=== PATIENT | male | born 1960 | race African-American/Black ===

== ENCOUNTER 2017-03-29 15:16 | Observation (INO) ==
[2017-03-29 17:03] LABS: Basophils % 0.6 % (0.0-0.8); Hematocrit 44.7 VOL% (42.0-52.0); Hemoglobin 14.4 GM/DL (14.0-18.0); Immature Granulocytes % 0.4 %; Immature Granulocytes Absolute 0.02 #; Lymphocytes # 0.9 10*3/uL (1.4-4.0); Lymphocytes % 17.6 % (21.2-54.2); Mean Corpuscular HGB Conc 32.2 GM/DL (32-36); Mean Corpuscular Hemoglobin 29 PG (27-34); Mean Corpuscular Volume 90.1 FL (87-102); Mean Platelet Volume 10.4 FL (9.6-12.0); Monocytes # 0.6 10*3/uL (0.11-0.8); Neutrophils # 3.4 10*3/uL (1.4-7.4); Neutrophils % 69.4 % (38.7-73.9); Platelet Count 148 T/CUMM (130-400); Red Blood Count 4.96 MC/CUMM (3.8-5.5); Red Cell Distribution Width 13.3 % (9.3-17.3); White Blood Count 4.8 T/CUMM (4-12)
[2017-03-29 17:10] LABS: INR 1.1; PT Patient Result 11.1 SECS
[2017-03-29 17:35] LABS: Albumin 3.8 G/DL (3.4-5.0); Bilirubin,Total 0.4 MG/DL (0.2-1.0); Calcium 9.1 MG/DL (8.5-10.1); Magnesium 1.9 MG/DL (1.8-2.4); Osmolality,Calculated 262.4 MOS/KG (273-304); Potassium 4.3 MMOL/L (3.5-5.1); Total Protein 7.4 G/DL (6.4-8.3)
[2017-03-29] MEDS ORDERED: ALUM/MAG/SIMETH/LIDO VISC 1:1 30 ML BOTTLE PO ONE (18:22)
[2017-03-29] MEDS ORDERED: cloNIDine 0.1 MG TABLET ONE (18:29)
[2017-03-29] MEDS: ALUM/MAG/SIMETH/LIDO VISC 1:1 30 ML BOTTLE PO STA ×2 (18:31→18:33)
[2017-03-29] MEDS ORDERED: ONDANSETRON 4 MG/2 ML VIAL IV PRN (21:27)
[2017-03-29] MEDS ORDERED: NITROGLYCERIN SL 0.4 MG TABLET SL PRN (21:27)
[2017-03-29] MEDS ORDERED: MECLIZINE 25 MG TABLET PO PRN (21:27)
[2017-03-29 21:59] LABS: Barbiturates Screen,Urine Negative (Negative); Benzodiazepines Screen,Urine Negative (Negative); Cannabinoid Screen,Urine Positive (Negative); Opiate Screen,Urine Negative (Negative); Phencyclidine Screen,Urine Negative (Negative)
[2017-03-29] MEDS: PANTOPRAZOLE 40 MG TABLET PO SCH (22:03)
[2017-03-29] MEDS: ARIPiprazole 10 MG TABLET PO SCH (22:03)
[2017-03-30 00:59] LABS: Troponin I Only < 0.015 NG/ML (0.00-0.045)
[2017-03-30] MEDS: ACETAMINOPHEN 325 MG TABLET PO PRN ×2 (01:10→09:01)
[2017-03-30 04:41] LABS: Basophils % 0.5 % (0.0-0.8); Hematocrit 40.3 VOL% (42.0-52.0); Hemoglobin 13.6 GM/DL (14.0-18.0); Lymphocytes # 0.8 10*3/uL (1.4-4.0); Lymphocytes % 20.5 % (21.2-54.2); Mean Corpuscular HGB Conc 33.7 GM/DL (32-36); Mean Corpuscular Hemoglobin 29 PG (27-34); Mean Corpuscular Volume 86.9 FL (87-102); Monocytes # 0.5 10*3/uL (0.11-0.8); Monocytes % 12.2 % (1.7-12.7); Neutrophils # 2.5 10*3/uL (1.4-7.4); Neutrophils % 66.8 % (38.7-73.9); Platelet Count 145 T/CUMM (130-400); Red Blood Count 4.64 MC/CUMM (3.8-5.5); Red Cell Distribution Width 13.2 % (9.3-17.3); White Blood Count 3.8 T/CUMM (4-12)
[2017-03-30 05:08] LABS: Calcium 8.4 MG/DL (8.5-10.1); Osmolality,Calculated 264.4 MOS/KG (273-304); Potassium 4.1 MMOL/L (3.5-5.1)
[2017-03-30 05:35] LABS: Troponin I Only < 0.015 NG/ML (0.00-0.045)
[2017-03-30] MEDS: CITALOPRAM 20 MG TABLET PO SCH (09:01)
[2017-03-30] MEDS: METOPROLOL SUCCINATE XL 50 MG TABLET PO SCH (09:01)
[2017-03-30] MEDS: amLODIPine 5 MG TABLET PO SCH (09:01)
[2017-03-30] MEDS: hydrALAZINE 25 MG TABLET PO SCH (09:03)
[2017-03-30] MEDS: PANTOPRAZOLE 40 MG TABLET PO SCH ×2 (09:03→20:29)
[2017-03-30] MEDS: LORATADINE 10 MG TABLET PO SCH (09:03)
[2017-03-30] MEDS: ARIPiprazole 10 MG TABLET PO SCH (20:29)
[2017-03-31 05:38] LABS: Basophils % 0.7 % (0.0-0.8); Hematocrit 40.4 VOL% (42.0-52.0); Hemoglobin 13.5 GM/DL (14.0-18.0); Immature Granulocytes % 0.2 %; Immature Granulocytes Absolute 0.01 #; Lymphocytes # 1.2 10*3/uL (1.4-4.0); Lymphocytes % 27.8 % (21.2-54.2); Mean Corpuscular HGB Conc 33.4 GM/DL (32-36); Mean Corpuscular Hemoglobin 29 PG (27-34); Mean Corpuscular Volume 86.9 FL (87-102); Monocytes # 0.5 10*3/uL (0.11-0.8); Monocytes % 11.8 % (1.7-12.7); Neutrophils # 2.5 10*3/uL (1.4-7.4); Neutrophils % 59.5 % (38.7-73.9); Platelet Count 128 T/CUMM (130-400); Red Blood Count 4.65 MC/CUMM (3.8-5.5); Red Cell Distribution Width 13.2 % (9.3-17.3); White Blood Count 4.1 T/CUMM (4-12)
[2017-03-31 06:07] LABS: Magnesium 1.7 MG/DL (1.8-2.4); Osmolality,Calculated 261.7 MOS/KG (273-304)
[2017-03-31 08:27] VITALS: BP 120/75
[2017-03-31] MEDS: LORATADINE 10 MG TABLET PO SCH (08:40)
[2017-03-31] MEDS: CITALOPRAM 20 MG TABLET PO SCH (08:40)
[2017-03-31] MEDS: PANTOPRAZOLE 40 MG TABLET PO SCH (08:40)
[2017-03-31] MEDS: amLODIPine 5 MG TABLET PO SCH (08:42)
[2017-03-31] MEDS: hydrALAZINE 25 MG TABLET PO SCH (08:43)
[2017-03-31] MEDS: METOPROLOL SUCCINATE XL 50 MG TABLET PO SCH (08:46)
== END 2017-03-31 11:30 | disposition home or self-care (01) ==
LOC: N.EDINP 15:16 → N.ED 15:16 → N.TELEN 19:05
PROVIDERS: ADMIT Internal Medicine; ATTEND Internal Medicine

== ENCOUNTER 2018-12-04 16:08 | Observation (INO) ==
[2018-12-04] MEDS ORDERED: ALBUTEROL/IPRATROPIUM 3 ML NEB RESP TX STA (16:44)
[2018-12-04] MEDS ORDERED: ASPIRIN 325 MG TABLET PO STA (16:44)
[2018-12-04] MEDS ORDERED: ALUM/MAG/SIMETH/LIDO VISC 1:1 30 ML BOTTLE PO STA (16:44)
[2018-12-04] MEDS ORDERED: MORPHINE 4 MG/1 ML VIAL IV STA (16:44)
[2018-12-04] MEDS ORDERED: NITROGLYCERIN 2% OINT 1 INCH/GM PACK TOP STA (16:44)
[2018-12-04] MEDS ORDERED: methylPREDNISolone SOD SUC 125 MG/2 ML VIAL IV STA (16:44)
[2018-12-04] MEDS ORDERED: ONDANSETRON 4 MG/2 ML VIAL IV STA (16:44)
[2018-12-04 17:27] LABS: Basophils % 0.3 % (0.0-0.8); Eosinophils % 0.3 % (0.00-10.9); Hematocrit 41.9 VOL% (42.0-52.0); Hemoglobin 13.8 GM/DL (14.0-18.0); Immature Granulocytes % 0.3 %; Immature Granulocytes Absolute 0.02 #; Lymphocytes # 1.4 10*3/uL (1.4-4.0); Lymphocytes % 20.8 % (21.2-54.2); Mean Corpuscular HGB Conc 32.9 GM/DL (32-36); Mean Corpuscular Volume 88.2 FL (87-102); Mean Platelet Volume 9.9 FL (9.6-12.0); Monocytes % 6.7 % (1.7-12.7); Neutrophils % 71.6 % (38.7-73.9); Platelet Count 179 T/CUMM (130-400); Red Blood Count 4.75 MC/CUMM (3.8-5.5); Red Cell Distribution Width 13.3 % (9.3-17.3); White Blood Count 6.9 T/CUMM (4-12)
[2018-12-04 17:37] LABS: INR 1.1; PT Patient Result 11.9 SECS (9.6-12.2)
[2018-12-04 18:07] LABS: Apearance,Urine CLEAR (Clear); Bilirubin,Urine Negative (Negative); Blood, Urine Small mg/dL (Negative); Glucose,Urine (UA) Negative (Negative); Ketones,Urine 5 mg/dL (Negative); Mucus,Urine Occasional /LPF (Occasional); Nitrite,Urine Negative (Negative); Protein,Urine Negative; RBC,Urine 3 /HPF (0-4); Squamous Epithelial Cell,Urine Occasional /HPF (0-10); Urine Color Yellow (Yellow); Urine Specific Gravity 1.012 (1.001-1.035); Urine Urobilinogen < 2.0 EU/DL (0.2-1.0); WBC,Urine 1 /HPF (0-6)
[2018-12-04 18:07] LABS: Albumin 3.5 G/DL (3.4-5.0); Bilirubin,Total 0.5 MG/DL (0.2-1.0); Osmolality,Calculated 263.4 MOS/KG (273-304)
[2018-12-04] MEDS ORDERED: MAGNESIUM SULF RIDER 2 GM in PREMIX 1 EACH IV STA (18:09)
[2018-12-04] MEDS ORDERED: hydrALAZINE 20 MG/1 ML VIAL IV STA ×2 (18:18→19:38)
[2018-12-04 18:31] LABS: Barbiturates Screen,Urine Negative (Negative); Benzodiazepines Screen,Urine Negative (Negative); Cannabinoid Screen,Urine Positive (Negative); Opiate Screen,Urine Negative (Negative); Phencyclidine Screen,Urine Negative (Negative)
[2018-12-04] MEDS ORDERED: ACETAMINOPHEN 325 MG TABLET PO PRN (19:18)
[2018-12-04] MEDS ORDERED: traZODone 50 MG TABLET PO PRN (19:18)
[2018-12-04] MEDS ORDERED: ONDANSETRON 4 MG/2 ML VIAL IV PRN (19:18)
[2018-12-04] MEDS ORDERED: DOCUSATE SODIUM 100 MG CAPSULE PO PRN (19:18)
[2018-12-04] MEDS ORDERED: LABETALOL 20 MG/4 ML SYRINGE IV PRN (19:24)
[2018-12-04] MEDS ORDERED: ALBUTEROL/IPRATROPIUM 3 ML NEB RESP TX SCH (19:30)
[2018-12-04 20:21] LABS: Troponin I < 0.015 NG/ML (0.00-0.045)
[2018-12-04] MEDS ORDERED: ENOXAPARIN 40 MG/0.4 ML SYRINGE SUBCUT SCH (21:00)
[2018-12-04] MEDS: CARVEDILOL 12.5 MG TABLET PO SCH (22:47)
[2018-12-05] MEDS: ALBUTEROL/IPRATROPIUM 3 ML NEB RESP TX SCH ×4 (00:01→23:46)
[2018-12-05 01:35] LABS: Basophils % 0.2 % (0.0-0.8); Hematocrit 40.2 VOL% (42.0-52.0); Hemoglobin 12.9 GM/DL (14.0-18.0); Immature Granulocytes % 0.5 %; Immature Granulocytes Absolute 0.03 #; Lymphocytes # 0.7 10*3/uL (1.4-4.0); Lymphocytes % 10.4 % (21.2-54.2); Mean Corpuscular HGB Conc 32.1 GM/DL (32-36); Mean Corpuscular Volume 88.4 FL (87-102); Mean Platelet Volume 9.7 FL (9.6-12.0); Monocytes % 0.8 % (1.7-12.7); Neutrophils % 88.1 % (38.7-73.9); Platelet Count 168 T/CUMM (130-400); Red Blood Count 4.55 MC/CUMM (3.8-5.5); Red Cell Distribution Width 13.2 % (9.3-17.3); White Blood Count 6.2 T/CUMM (4-12)
[2018-12-05 01:54] LABS: Troponin I < 0.015 NG/ML (0.00-0.045)
[2018-12-05 01:57] LABS: Band Neutrophils 1 % (0-10); Lymphocytes 8 % (20-55); Nucleated Red Blood Cells 0 (0-5); Platelet Estimate Normal; Segmented Neutrophils 88 % (50-85); Total Cells Counted 100
[2018-12-05 02:06] LABS: C-Reactive Protein HS Cardiac 1.3 MG/DL (0-0.3); Risk Ratio 2.68
[2018-12-05 02:18] LABS: Calcium 8.6 MG/DL (8.5-10.1); Osmolality,Calculated 269.2 MOS/KG (273-304); Thyroid Stimulating Hormone 0.483 uIU/ml (0.358-3.74)
[2018-12-05] MEDS: MAGNESIUM CHLORIDE 64 MG TABLET PO SCH (08:41)
[2018-12-05] MEDS: buPROPion SR 100 MG TABLET PO SCH (08:41)
[2018-12-05] MEDS: CARVEDILOL 12.5 MG TABLET PO SCH ×2 (08:41→16:47)
[2018-12-05] MEDS: ASPIRIN EC 325 MG TABLET PO SCH (08:41)
[2018-12-05] MEDS: CETIRIZINE 10 MG TABLET PO SCH (08:41)
[2018-12-05] MEDS: PANTOPRAZOLE 40 MG TABLET PO SCH ×2 (08:41→23:39)
[2018-12-05] MEDS: NICOTINE 21 MG/24 HR PATCH TRANSDERM SCH (08:41)
[2018-12-05] MEDS ORDERED: amLODIPine 5 MG TABLET PO SCH (09:00)
[2018-12-05] MEDS ORDERED: PANTOPRAZOLE 40 MG TABLET PO SCH (09:00)
[2018-12-05] MEDS: FLUTICASONE 50 MCG NASAL SPRAY 16 GM BOTTLE BOTH NARES SCH (09:52)
[2018-12-05] MEDS: amLODIPine 10 MG TABLET PO SCH (14:50)
[2018-12-06] MEDS: ALBUTEROL/IPRATROPIUM 3 ML NEB RESP TX SCH (07:42)
[2018-12-06] MEDS ORDERED: LACTATED RINGERS 1,000 ML IV SCH (08:00)
[2018-12-06] MEDS ORDERED: LOSARTAN 25 MG TABLET PO SCH (09:00)
[2018-12-06] MEDS ORDERED: LIDOCAINE 100 MG/5 ML SYRINGE ONE (10:00)
[2018-12-06] MEDS ORDERED: PROPOFOL 200 MG/20 ML VIAL IV ONE (10:00)
[2018-12-06 11:59] VITALS: BP 168/109
[2018-12-06] MEDS: buPROPion SR 100 MG TABLET PO SCH (12:40)
[2018-12-06] MEDS: PANTOPRAZOLE 40 MG TABLET PO SCH (12:40)
[2018-12-06] MEDS: ASPIRIN EC 325 MG TABLET PO SCH (12:40)
[2018-12-06] MEDS: NICOTINE 21 MG/24 HR PATCH TRANSDERM SCH (12:40)
[2018-12-06] MEDS: MAGNESIUM CHLORIDE 64 MG TABLET PO SCH (12:40)
[2018-12-06] MEDS: amLODIPine 10 MG TABLET PO SCH (12:40)
[2018-12-06] MEDS: CETIRIZINE 10 MG TABLET PO SCH (12:40)
[2018-12-06] MEDS: FLUTICASONE 50 MCG NASAL SPRAY 16 GM BOTTLE BOTH NARES SCH (12:41)
[2018-12-06] MEDS: CARVEDILOL 12.5 MG TABLET PO SCH (12:41)
== END 2018-12-06 12:03 | disposition home or self-care (01) ==
LOC: N.EDINP 16:08 → N.ED 16:08 → N.TELES 20:14
PROVIDERS: ADMIT Hospitalist; ATTEND Hospitalist

== ENCOUNTER 2019-02-09 01:39 | Observation (INO) ==
[2019-02-09] MEDS ORDERED: hydrALAZINE 20 MG/1 ML VIAL ONE (02:13)
[2019-02-09] MEDS ORDERED: hydrALAZINE 20 MG/1 ML VIAL IV STA (02:16)
[2019-02-09 02:29] LABS: Basophils % 0.7 % (0.0-0.8); Eosinophils # 0.1 10*3/uL (0.0-0.87); Hemoglobin 13.3 GM/DL (14.0-18.0); Immature Granulocytes % 0.2 %; Immature Granulocytes Absolute 0.01 #; Lymphocytes # 2.2 10*3/uL (1.4-4.0); Lymphocytes % 36.1 % (21.2-54.2); Mean Corpuscular HGB Conc 34.1 GM/DL (32-36); Mean Corpuscular Volume 86.1 FL (87-102); Mean Platelet Volume 9.8 FL (9.6-12.0); Platelet Count 180 T/CUMM (130-400); Red Blood Count 4.53 MC/CUMM (3.8-5.5); Red Cell Distribution Width 12.1 % (9.3-17.3)
[2019-02-09 02:31] LABS: INR 1.1; PT Patient Result 11.8 SECS (9.6-12.2)
[2019-02-09 02:39] LABS: Amorphous Crystals,Urine Occasional /HPF (Few); Apearance,Urine CLOUDY (Clear); Bilirubin,Urine Negative (Negative); Blood, Urine Negative (Negative); Glucose,Urine (UA) Negative (Negative); Ketones,Urine 5 mg/dL (Negative); Nitrite,Urine Negative (Negative); Protein,Urine Negative; RBC,Urine 2 /HPF (0-4); Urine Color Yellow (Yellow); Urine Urobilinogen < 2.0 EU/DL (0.2-1.0)
[2019-02-09 02:46] LABS: Albumin 3.6 G/DL (3.4-5.0); Bilirubin,Total 0.7 MG/DL (0.2-1.0); Calcium 8.8 MG/DL (8.5-10.1); Osmolality,Calculated 244.9 MOS/KG (273-304); Total Protein 7.2 G/DL (6.4-8.3)
[2019-02-09 02:50] LABS: Barbiturates Screen,Urine Negative (Negative); Benzodiazepines Screen,Urine Negative (Negative); Cannabinoid Screen,Urine Positive (Negative); Opiate Screen,Urine Negative (Negative); Phencyclidine Screen,Urine Negative (Negative)
[2019-02-09] MEDS ORDERED: LABETALOL 20 MG/4 ML SYRINGE IV STA (03:07)
[2019-02-09] MEDS ORDERED: LABETALOL 20 MG/4 ML SYRINGE IV ONE (03:08)
[2019-02-09] MEDS ORDERED: guaiFENesin/DM ER 600-30 MG TABLET PO PRN (03:41)
[2019-02-09] MEDS ORDERED: BISACODYL 5 MG TABLET PO PRN (03:41)
[2019-02-09] MEDS ORDERED: ONDANSETRON 4 MG/2 ML VIAL IV PRN (03:41)
[2019-02-09] MEDS ORDERED: diphenhydrAMINE CAP 25 MG CAPSULE PO PRN (03:41)
[2019-02-09] MEDS ORDERED: traZODone 50 MG TABLET PO PRN (03:41)
[2019-02-09] MEDS ORDERED: ACETAMINOPHEN 325 MG TABLET PO PRN (03:41)
[2019-02-09] MEDS ORDERED: MORPHINE 4 MG/1 ML VIAL IV PRN (03:41)
[2019-02-09] MEDS ORDERED: NICOTINE 21 MG/24 HR PATCH TRANSDERM PRN (03:41)
[2019-02-09] MEDS ORDERED: hydrALAZINE 20 MG/1 ML VIAL IV PRN (03:41)
[2019-02-09 04:46] LABS: Risk Ratio 2.56; Thyroid Stimulating Hormone 0.81 uIU/ml (0.358-3.74); VLDL CHOLESTEROL 8.4 MG/DL
[2019-02-09] MEDS ORDERED: PNEUMOCOCCAL VACCINE (23 VALENT) 0.5 ML VIAL IM ONE (06:08)
[2019-02-09] MEDS: carvediloL 12.5 MG TABLET PO SCH ×2 (09:49→20:42)
[2019-02-09] MEDS: ENOXAPARIN 40 MG/0.4 ML SYRINGE SUBCUT SCH (09:49)
[2019-02-09] MEDS: cloNIDine 0.1 MG TABLET PO SCH ×3 (09:49→20:42)
[2019-02-09] MEDS: PANTOPRAZOLE 40 MG TABLET PO SCH (09:50)
[2019-02-09] MEDS: amLODIPine 10 MG TABLET PO SCH (09:50)
[2019-02-09] MEDS ORDERED: MAGNESIUM SULF RIDER 4 GM in PREMIX 1 EACH IV PRN (11:51)
[2019-02-09] MEDS ORDERED: MAGNESIUM SULF RIDER 2 GM in PREMIX 1 EACH IV PRN (11:51)
[2019-02-09 12:57] LABS: HIV Antigen/Antibody Result Nonreactive (Nonreactive)
[2019-02-10 07:48] VITALS: BP 144/92
[2019-02-10] MEDS: amLODIPine 10 MG TABLET PO SCH (08:23)
[2019-02-10] MEDS: cloNIDine 0.1 MG TABLET PO SCH (08:23)
[2019-02-10] MEDS: ENOXAPARIN 40 MG/0.4 ML SYRINGE SUBCUT SCH (08:23)
[2019-02-10] MEDS: PANTOPRAZOLE 40 MG TABLET PO SCH (08:23)
[2019-02-10] MEDS: carvediloL 12.5 MG TABLET PO SCH (08:23)
== END 2019-02-10 11:14 | disposition home or self-care (01) ==
LOC: N.EDINP 01:39 → N.ED 01:39 → SUATTDRO 03:41 → N.TELES 05:01
PROVIDERS: ADMIT Emergency Medicine; ATTEND Internal Medicine Cardiovascular Disease

== ENCOUNTER 2021-04-09 09:10 | Inpatient (IN) ==
[2021-04-09] MEDS ORDERED: ONDANSETRON 4 MG/2 ML VIAL IV STA (10:43)
[2021-04-09] MEDS ORDERED: SODIUM CHLORIDE 0.9% 1,000 ML IV STA (10:43)
[2021-04-09] MEDS ORDERED: hydrALAZINE 20 MG/1 ML VIAL IV STA ×2 (10:44→12:26)
[2021-04-09 11:27] LABS: Basophils % 0.3 % (0.0-0.8); Hemoglobin 15.9 GM/DL (14.0-18.0); Immature Granulocytes % 0.5 %; Immature Granulocytes Absolute 0.02 #; Lymphocytes # 0.8 10*3/uL (1.4-4.0); Lymphocytes % 20.7 % (21.2-54.2); Mean Corpuscular HGB Conc 33.8 GM/DL (32-36); Mean Corpuscular Volume 85.5 FL (87-102); Mean Platelet Volume 9.2 FL (9.6-12.0); Monocytes % 13.9 % (1.7-12.7); Neutrophils % 64.6 % (38.7-73.9); Platelet Count 163 T/CUMM (130-400); Red Cell Distribution Width 12.5 % (9.3-17.3); White Blood Count 3.8 T/CUMM (4-12)
[2021-04-09 11:32] LABS: Bilirubin,Urine Negative (Negative); Blood, Urine Negative (Negative); Glucose,Urine (UA) Negative (Negative); Ketones,Urine 20 mg/dL (Negative); Mucus,Urine Many /LPF (Occasional); Nitrite,Urine Negative (Negative); Protein,Urine >=500 MG/DL; RBC,Urine 17 /HPF (0-4); Urine Appearance CLEAR (Clear); Urine Color Amber (Yellow); Urine Specific Gravity 1.026 (1.001-1.035)
[2021-04-09 11:44] LABS: Albumin 3.4 G/DL (3.4-5.0); Bilirubin,Total 0.7 MG/DL (0.20-1.00); Osmolality,Calculated 235.6 MOS/KG (273-304); Potassium 3.9 MMOL/L (3.5-5.1)
[2021-04-09] MEDS ORDERED: DOCUSATE SODIUM 100 MG CAPSULE PO PRN (12:46)
[2021-04-09] MEDS ORDERED: ALUMINUM/MAGNES/SIMETH MAX STR 30 ML UDCUP PO PRN (12:46)
[2021-04-09] MEDS ORDERED: DEXTROSE 50% 25 GM/50 ML SYRINGE IV PRN ×2 (12:46→13:30)
[2021-04-09] MEDS ORDERED: GLUCAGON 1 MG VIAL IM PRN ×2 (12:46→13:30)
[2021-04-09] MEDS ORDERED: hydrALAZINE 20 MG/1 ML VIAL IV PRN (12:46)
[2021-04-09] MEDS ORDERED: NICOTINE 14 MG/24 HR PATCH TRANSDERM PRN (12:53)
[2021-04-09 13:22] LABS: Thyroid Stimulating Hormone 1.49 uIU/ml (0.358-3.74)
[2021-04-09] MEDS ORDERED: MAGNESIUM SULF RIDER 2 GM/50 ML PREMIX IV PRN (13:30)
[2021-04-09] MEDS ORDERED: MAGNESIUM SULF RIDER 4 GM/100 ML PREMIX IV PRN (13:30)
[2021-04-09] MEDS ORDERED: METHOCARBAMOL 750 MG TABLET PO PRN (13:31)
[2021-04-09] MEDS: SODIUM CHLORIDE 0.9% 1,000 ML IV SCH ×2 (13:59→23:40)
[2021-04-09] MEDS ORDERED: carvediloL 12.5 MG TABLET PO SCH (14:00)
[2021-04-09 15:13] LABS: Ferritin 815.7 ng/mL (26-388)
[2021-04-09] MEDS: ENOXAPARIN 40 MG/0.4 ML SYRINGE SUBCUT SCH (15:15)
[2021-04-09] MEDS: INSULIN LISPRO 100 UNIT/ML SUBCUT SCH ×2 (17:10→21:40)
[2021-04-09] MEDS: ACETAMINOPHEN 325 MG TABLET PO PRN (19:26)
[2021-04-09] MEDS: ONDANSETRON 4 MG/2 ML VIAL IV PRN (19:27)
[2021-04-09] MEDS: cloNIDine 0.1 MG TABLET PO SCH (21:43)
[2021-04-09] MEDS: carvediloL 12.5 MG TABLET PO SCH (21:43)
[2021-04-10 04:47] LABS: Basophils % 0.5 % (0.0-0.8); Hemoglobin 14.9 GM/DL (14.0-18.0); Immature Granulocytes % 0.2 %; Immature Granulocytes Absolute 0.01 #; Lymphocytes # 1.4 10*3/uL (1.4-4.0); Lymphocytes % 34.3 % (21.2-54.2); Mean Corpuscular HGB Conc 33.9 GM/DL (32-36); Mean Corpuscular Volume 84.5 FL (87-102); Mean Platelet Volume 10.1 FL (9.6-12.0); Monocytes % 14.9 % (1.7-12.7); Neutrophils % 50.1 % (38.7-73.9); Platelet Count 166 T/CUMM (130-400); Red Blood Count 5.21 MC/CUMM (3.8-5.5); Red Cell Distribution Width 12.4 % (9.3-17.3); White Blood Count 4.2 T/CUMM (4-12)
[2021-04-10 05:20] LABS: Albumin 2.9 G/DL (3.4-5.0); Calcium 8.3 MG/DL (8.5-10.1); Osmolality,Calculated 242.1 MOS/KG (273-304); Potassium 3.8 MMOL/L (3.5-5.1)
[2021-04-10 05:27] LABS: Anisocytosis Slight; Burr Cells Few; Platelet Estimate Normal
[2021-04-10] MEDS: INSULIN LISPRO 100 UNIT/ML SUBCUT SCH ×4 (09:23→22:26)
[2021-04-10] MEDS: carvediloL 12.5 MG TABLET PO SCH ×2 (09:35→22:21)
[2021-04-10] MEDS: PANTOPRAZOLE 40 MG TABLET PO SCH (09:36)
[2021-04-10] MEDS ORDERED: ASPIRIN CHEW 81 MG TABLET PO ONE (15:07)
[2021-04-10] MEDS: cloNIDine 0.1 MG TABLET PO SCH ×2 (15:16→22:21)
[2021-04-10] MEDS: ENOXAPARIN 40 MG/0.4 ML SYRINGE SUBCUT SCH (15:17)
[2021-04-10] MEDS: ASPIRIN 325 MG TABLET PO SCH (15:18)
[2021-04-10 15:41] LABS: Osmolality, Urine 888 mOsm/kg (150 - 1150)
[2021-04-10] MEDS: FAMOTIDINE 20 MG TABLET PO SCH (22:21)
[2021-04-10] MEDS: SODIUM CHLORIDE 0.9% 1,000 ML IV SCH (22:21)
[2021-04-11 00:31] LABS: Osmolality, Serum 241 mOsm/kg (275 - 295)
[2021-04-11] MEDS: ACETAMINOPHEN 325 MG TABLET PO PRN ×2 (03:57→20:00)
[2021-04-11 04:57] LABS: Basophils % 0.7 % (0.0-0.8); Eosinophils % 0.2 % (0.00-10.9); Hematocrit 40.7 VOL% (42.0-52.0); Hemoglobin 13.8 GM/DL (14.0-18.0); Immature Granulocytes % 0.2 %; Immature Granulocytes Absolute 0.01 #; Lymphocytes # 1.5 10*3/uL (1.4-4.0); Lymphocytes % 35.2 % (21.2-54.2); Mean Corpuscular HGB Conc 33.9 GM/DL (32-36); Mean Corpuscular Volume 84.6 FL (87-102); Mean Platelet Volume 9.6 FL (9.6-12.0); Monocytes % 16.1 % (1.7-12.7); Neutrophils % 47.6 % (38.7-73.9); Platelet Count 145 T/CUMM (130-400); Red Blood Count 4.81 MC/CUMM (3.8-5.5); Red Cell Distribution Width 12.3 % (9.3-17.3); White Blood Count 4.4 T/CUMM (4-12)
[2021-04-11 05:18] LABS: Calcium 8.2 MG/DL (8.5-10.1); Osmolality,Calculated 238.3 MOS/KG (273-304); Potassium 3.8 MMOL/L (3.5-5.1)
[2021-04-11] MEDS: SODIUM CHLORIDE 0.9% 1,000 ML IV SCH ×4 (05:28→22:12)
[2021-04-11 08:43] LABS: Atypical Lymphocytes Few; Hypochromia Slight; Lymphocytes 26 % (20-55); Platelet Estimate Adequate; Reactive Lymphocytes Few; Segmented Neutrophils 57 % (50-85); Total Cells Counted 100
[2021-04-11] MEDS: INSULIN LISPRO 100 UNIT/ML SUBCUT SCH ×4 (09:28→21:12)
[2021-04-11] MEDS: carvediloL 12.5 MG TABLET PO SCH ×2 (09:29→20:00)
[2021-04-11] MEDS: ASPIRIN 325 MG TABLET PO SCH (09:29)
[2021-04-11] MEDS: cloNIDine 0.1 MG TABLET PO SCH ×2 (09:29→20:00)
[2021-04-11] MEDS: FAMOTIDINE 20 MG TABLET PO SCH ×2 (09:30→20:00)
[2021-04-11] MEDS: ZINC SULFATE 220 MG CAPSULE PO SCH (09:30)
[2021-04-11] MEDS: PANTOPRAZOLE 40 MG TABLET PO SCH (09:30)
[2021-04-11] MEDS: ENOXAPARIN 40 MG/0.4 ML SYRINGE SUBCUT SCH (12:41)
[2021-04-11] MEDS: AZITHROMYCIN 250 MG TABLET PO SCH (14:34)
[2021-04-12 04:42] LABS: Basophils % 0.5 % (0.0-0.8); Hematocrit 39.6 VOL% (42.0-52.0); Hemoglobin 13.2 GM/DL (14.0-18.0); Immature Granulocytes % 0.5 %; Immature Granulocytes Absolute 0.02 #; Lymphocytes # 1.5 10*3/uL (1.4-4.0); Mean Corpuscular HGB Conc 33.3 GM/DL (32-36); Mean Corpuscular Volume 85.5 FL (87-102); Mean Platelet Volume 10.1 FL (9.6-12.0); Monocytes % 16.2 % (1.7-12.7); Neutrophils % 45.8 % (38.7-73.9); Platelet Count 141 T/CUMM (130-400); Red Blood Count 4.63 MC/CUMM (3.8-5.5); Red Cell Distribution Width 12.2 % (9.3-17.3); White Blood Count 4.1 T/CUMM (4-12)
[2021-04-12 04:57] LABS: Osmolality,Calculated 235.5 MOS/KG (273-304); Potassium 3.7 MMOL/L (3.5-5.1)
[2021-04-12 06:40] LABS: Lymphocytes 32 % (20-55); Segmented Neutrophils 56 % (50-85); Total Cells Counted 100
[2021-04-12 06:41] LABS: Atypical Lymphocytes Few; Burr Cells Few; Platelet Estimate Adequate
[2021-04-12] MEDS: INSULIN LISPRO 100 UNIT/ML SUBCUT SCH ×4 (07:51→20:26)
[2021-04-12] MEDS: SODIUM CHLORIDE 3% INJ 500 ML IV SCH (09:17)
[2021-04-12] MEDS: PANTOPRAZOLE 40 MG TABLET PO SCH (09:17)
[2021-04-12] MEDS: ASPIRIN 325 MG TABLET PO SCH (09:17)
[2021-04-12] MEDS: cloNIDine 0.1 MG TABLET PO SCH ×2 (09:17→20:25)
[2021-04-12] MEDS: AZITHROMYCIN 250 MG TABLET PO SCH (09:17)
[2021-04-12] MEDS: ZINC SULFATE 220 MG CAPSULE PO SCH (09:17)
[2021-04-12] MEDS: carvediloL 12.5 MG TABLET PO SCH ×2 (09:17→20:26)
[2021-04-12] MEDS: FAMOTIDINE 20 MG TABLET PO SCH ×2 (09:17→20:26)
[2021-04-12] MEDS: ACETAMINOPHEN 325 MG TABLET PO PRN ×2 (09:24→20:26)
[2021-04-12] MEDS: ONDANSETRON 4 MG/2 ML VIAL IV PRN (09:44)
[2021-04-12] MEDS: ENOXAPARIN 40 MG/0.4 ML SYRINGE SUBCUT SCH (13:50)
[2021-04-13] MEDS: ACETAMINOPHEN 325 MG TABLET PO PRN (06:15)
[2021-04-13 06:31] LABS: Basophils % 0.3 % (0.0-0.8); Hematocrit 40.8 VOL% (42.0-52.0); Hemoglobin 13.8 GM/DL (14.0-18.0); Immature Granulocytes % 0.3 %; Immature Granulocytes Absolute 0.02 #; Lymphocytes # 1.5 10*3/uL (1.4-4.0); Lymphocytes % 23.5 % (21.2-54.2); Mean Corpuscular HGB Conc 33.8 GM/DL (32-36); Mean Corpuscular Volume 84.1 FL (87-102); Mean Platelet Volume 9.6 FL (9.6-12.0); Neutrophils % 61.9 % (38.7-73.9); Platelet Count 158 T/CUMM (130-400); Red Blood Count 4.85 MC/CUMM (3.8-5.5); Red Cell Distribution Width 12.2 % (9.3-17.3); White Blood Count 6.2 T/CUMM (4-12)
[2021-04-13 06:50] LABS: Calcium 8.1 MG/DL (8.5-10.1); Osmolality,Calculated 248.5 MOS/KG (273-304); Potassium 3.7 MMOL/L (3.5-5.1)
[2021-04-13] MEDS: INSULIN LISPRO 100 UNIT/ML SUBCUT SCH ×4 (08:20→21:18)
[2021-04-13] MEDS: SODIUM CHLORIDE 3% INJ 500 ML IV SCH (08:21)
[2021-04-13] MEDS: cloNIDine 0.1 MG TABLET PO SCH ×2 (09:14→21:17)
[2021-04-13] MEDS: AZITHROMYCIN 250 MG TABLET PO SCH (09:14)
[2021-04-13] MEDS: FAMOTIDINE 20 MG TABLET PO SCH ×2 (09:14→21:17)
[2021-04-13] MEDS: ASPIRIN EC 81 MG TABLET PO SCH (09:14)
[2021-04-13] MEDS: PANTOPRAZOLE 40 MG TABLET PO SCH (09:15)
[2021-04-13] MEDS: carvediloL 12.5 MG TABLET PO SCH ×2 (09:15→21:17)
[2021-04-13] MEDS: ZINC SULFATE 220 MG CAPSULE PO SCH (09:15)
[2021-04-13] MEDS: ASPIRIN 325 MG TABLET PO SCH (09:24)
[2021-04-13] MEDS: ENOXAPARIN 40 MG/0.4 ML SYRINGE SUBCUT SCH (12:11)
[2021-04-13] MEDS ORDERED: FUROSEMIDE 20 MG/2 ML VIAL IV ONE (15:13)
[2021-04-13] MEDS ORDERED: SODIUM CHLORIDE/POTASSIUM CHLORIDE TABLET PO SCH (21:00)
[2021-04-13] MEDS: ASCORBIC ACID 500 MG TABLET PO SCH (21:17)
[2021-04-14 05:45] LABS: Calcium 8.5 MG/DL (8.5-10.1); Osmolality,Calculated 242.9 MOS/KG (273-304); Potassium 3.6 MMOL/L (3.5-5.1)
[2021-04-14] MEDS: ACETAMINOPHEN 325 MG TABLET PO PRN (06:08)
[2021-04-14] MEDS ORDERED: MAGNESIUM SULF RIDER 4 GM/100 ML PREMIX IV ONE (07:50)
[2021-04-14] MEDS: INSULIN LISPRO 100 UNIT/ML SUBCUT SCH ×4 (08:15→21:07)
[2021-04-14] MEDS ORDERED: cloNIDine 0.1 MG TABLET PO PRN (08:49)
[2021-04-14] MEDS: ZINC SULFATE 220 MG CAPSULE PO SCH (09:33)
[2021-04-14] MEDS: SODIUM CHLORIDE 1 GM TABLET PO SCH ×3 (09:33→20:51)
[2021-04-14] MEDS: AZITHROMYCIN 250 MG TABLET PO SCH (09:33)
[2021-04-14] MEDS: ASPIRIN EC 81 MG TABLET PO SCH (09:33)
[2021-04-14] MEDS: carvediloL 12.5 MG TABLET PO SCH ×2 (09:34→20:50)
[2021-04-14] MEDS: cloNIDine 0.1 MG TABLET PO SCH ×2 (09:34→20:50)
[2021-04-14] MEDS: ASCORBIC ACID 500 MG TABLET PO SCH ×2 (09:34→20:51)
[2021-04-14] MEDS: FAMOTIDINE 20 MG TABLET PO SCH ×2 (09:34→20:50)
[2021-04-14] MEDS: ENOXAPARIN 40 MG/0.4 ML SYRINGE SUBCUT SCH (12:00)
[2021-04-14 12:28] LABS: Calcium 8.5 MG/DL (8.5-10.1); Osmolality,Calculated 243.1 MOS/KG (273-304); Potassium 3.7 MMOL/L (3.5-5.1)
[2021-04-14] MEDS ORDERED: SODIUM CHLORIDE 3% INJ 500 ML IV SCH (14:30)
[2021-04-15] MEDS: INSULIN LISPRO 100 UNIT/ML SUBCUT SCH ×2 (07:50→12:15)
[2021-04-15] MEDS: ASPIRIN EC 81 MG TABLET PO SCH (09:36)
[2021-04-15] MEDS: carvediloL 12.5 MG TABLET PO SCH (09:36)
[2021-04-15] MEDS: cloNIDine 0.1 MG TABLET PO SCH (09:36)
[2021-04-15] MEDS: ZINC SULFATE 220 MG CAPSULE PO SCH (09:37)
[2021-04-15] MEDS: SODIUM CHLORIDE 1 GM TABLET PO SCH (09:37)
[2021-04-15] MEDS: ASCORBIC ACID 500 MG TABLET PO SCH (09:37)
[2021-04-15] MEDS: FAMOTIDINE 20 MG TABLET PO SCH (09:37)
[2021-04-15] MEDS: AZITHROMYCIN 250 MG TABLET PO SCH (09:37)
[2021-04-15 12:50] VITALS: BP 147/88
[2021-04-15] MEDS: ENOXAPARIN 40 MG/0.4 ML SYRINGE SUBCUT SCH (14:53)
== END 2021-04-15 15:15 | disposition home or self-care (01) | DRG 640 ==
LOC: N.ED 09:10 → SUATTDRO 12:47 → N.EDINP 12:47 → N.CC 04-11 11:17
PROVIDERS: ADMIT Internal Medicine; ATTEND Internal Medicine